=== PATIENT | female | born 1940 | race Caucasian/White ===

== ENCOUNTER 2017-02-17 02:23 | Emergency (ER) | payer OTHER ==
[~2017-02-17] VITALS: Ht 162.6 cm; Wt 86.2 kg
[~2017-02-17 02:23] MED LIST: ACET300T4 PO; ALBU0.084 INH; ALEN70TA2 PO; ASPI81CH43 PO; ATOR10TA PO; BECL80AE9 PO; CLON0.1T14 PO; FURO40TA4 PO; GABA-497 PO; LACT10SO32 PO; LOSA50TA26 PO; MORP30SU PO; NTG PO; PRED1PAK11 PO; PRO-AIR IH; PROZAC PO; RANI-185 PO; SENN-8 PO; THEO1CAP2 PO; ZAFI1TAB2 PO; [UNRECOGNIZED DRUG - OTHER] PO
[2017-02-17] MEDS ORDERED: SODIUM CHLORIDE 0.9% 250 ML IV ONE (02:34)
[2017-02-17] MEDS ORDERED: SODIUM CHLORIDE 0.9% 1,000 ML IV ONE (02:43)
[2017-02-17 02:58] LABS: CONDITION Y; DEFINITIVE SEE PRINTOUT; Hematocrit 29.5 % (36.0-46.0); Hemoglobin 8.9 g/dL (12.2-16.2); Mean Corpuscular Hgb Conc. 30.1 g/dL (32.0-36.0); Mean Corpuscular Volume 76.4 fL (80.0-100.0); Mean Platelet Volume 7.8 fL (7.4-10.4); Platelet Count (auto) 698 10^3/uL (140-450); SUSPECT SEE PRINTOUT; White Blood Cell 21.1 10^3/uL (4.4-10.8)
[2017-02-17 03:19] LABS: INR 1.03 (0.9-1.15); Partial Thromboplastin Time 27.9 sec (22.64-33.71); Prothrombin Time 11.2 sec (9.37-12.3)
[2017-02-17 03:21] LABS: Red Cell Distribution Width 23.9 % (11.6-16.0)
[2017-02-17 03:22] LABS: Albumin 1.7 g/dL (3.4-5.0); Anion Gap 9 (5-15); Aspartate Aminotransferase 15 U/L (15-37); BUN/Creatinine Ratio 20.2; Blood Urea Nitrogen 37 mg/dL (7-18); Calcium 11.2 mg/dL (8.5-10.1); Carbon Dioxide 31 mmol/L (21-32); Chloride 113 mmol/L (98-107); GFR African American 34 mL/min; GFR Non-African American 28 mL/min; Glucose 144 mg/dL (74-106); Magnesium 2.2 mg/dL (1.6-2.6); Metamyelocytes % 0; Promyelocytes % 0; Reactive Lymphocytes 0; Sodium 153 mmol/L (136-145)
[2017-02-17 03:27] LABS: Alkaline Phosphatase 180 U/L (45-117); Bilirubin, Total 0.5 mg/dL (0.2-1.0); Potassium 2.8 mmol/L (3.5-5.1)
[2017-02-17 03:31] LABS: B-Type Natriuretic Peptide 31.3 pg/mL (0-100)
[2017-02-17 03:32] LABS: Temperature: 21.9 C (20.0-25.0)
[2017-02-17 04:39] LABS: Anisocytosis Moderate; Hypersegmented Neutrophils Present; Myelocytes % 1; Ovalocytes FEW; Platelet Estimate Increased
[2017-02-17 04:40] LABS: Hypochromia Moderate; Stomatocytes Few
[2017-02-17] MEDS: POTASSIUM CHL 20MEQ/100ML 100 ML IV SCH ×2 (04:41→06:47)
[2017-02-17] MEDS ORDERED: PIPERACILLIN-TAZOB 3.375GM 100 ML IV ONE (05:00)
[2017-02-17] MEDS ORDERED: metroNIDAZOLE 500MG/100ML 100 ML IV ONE (05:00)
[2017-02-17 07:58] VITALS: BP 152/81
== END 2017-02-17 08:17 | disposition short-term general hospital (02) ==
LOC: EDBD 02:23 → ER 02:40
DX: A41.9 Sepsis, unspecified organism (principal); E87.6 Hypokalemia; E66.9 Obesity, unspecified; E43 Unspecified severe protein-calorie malnutrition; R41.82 Altered mental status, unspecified; Z93.3 Colostomy status; Z90.49 Acquired absence of other specified parts of digestive tract
CPT/HCPCS: 36415; 70450; 71010; 74176; 80053; 83605; 83735; 83880; 84484; 85007; 85027; 85610; 85730; 87040; 93005; 94761; 96361; 96365; 96366; 96367; 96368; 99285; J2543; J3480; J3490; J7050